=== PATIENT | male | born 1990 | race Two or more races ===

== ENCOUNTER 2016-10-03 20:31 | Emergency (ER) | payer OTHER ==
[2016-10-03 20:37] VITALS: BP 127/72; PULSE 89; TEMP 98.2; BMI 35.5
[2016-10-03] MEDS ORDERED: IBUPROFEN 600 MG TABLET (FP) PO ONE ×2 (21:02→21:11)
[2016-10-03] MEDS ORDERED: OXYCODONE/APAP 5/325MG COMBO TABLET PO ONE (21:02)
[2016-10-03] MEDS ORDERED: SULFAMETHOXAZOLE/TRIMETHOPRIM 800MG/160MG D.S. TABLET PO ONE (21:03)
[2016-10-03] MEDS ORDERED: OXYCODONE/APAP 5/325MG COMBO TABLET ONE (21:11)
[2016-10-03] MEDS ORDERED: SULFAMETHOXAZOLE/TRIMETHOPRIM 800MG/160MG D.S. TABLET ONE (21:11)
--- NOTE | 2016-10-03 21:39 | PDOC ---
History of Present Illness - General Chief Complaint: Abscess Boil Stated Complaint: Abscess Boil Time Seen by Provider: 10/03/16 20:42 History Source: Patient Exam Limitations: No Limitations - History of Present Illness Initial Comments: 10/03/16 21:37 CHIEF COMPLAINT: Abscess HISTORY OF PRESENT ILLNESS: This is an otherwise healthy 26-year-old male who presents for evaluation of 3 days of pain and swelling to the left axilla. He denies any drainage from the site. He has had similar abscesses in the past. He denies fevers/chills or any other systemic symptoms. Vital signs on arrival are unremarkable. REVIEW OF SYSTEMS: GENERAL/CONSTITUTIONAL: No fever or chills. No weakness. No weight change. HEAD, EYES, EARS, NOSE AND THROAT: No change in vision. No ear pain or discharge. No sore throat. CARDIOVASCULAR: No chest pain or palpitations. RESPIRATORY: No cough, wheezing, or shortness of breath. GASTROINTESTINAL: No nausea, vomiting, diarrhea or constipation. GENITOURINARY: No dysuria, frequency, or change in urination. MUSCULOSKELETAL: No joint or muscle swelling or pain. No neck or back pain. SKIN: See HPI. NEUROLOGIC: No headache, vertigo, loss of consciousness, or loss of sensation. PSYCHIATRIC: No depression or anxiety. ENDOCRINE: No increased thirst. No abnormal weight change. HEMATOLOGIC/LYMPHATIC: No anemia, easy bleeding, or history of blood clots. ALLERGIC/IMMUNOLOGIC: No hives or skin allergy. No latex allergy. PHYSICAL EXAM: GENERAL: The patient is awake, alert, and fully oriented, in no acute distress. HEAD: Normal with no signs of trauma. ENT: Pupils equal, round and reactive to light, extraocular movements intact, sclera anicteric, conjunctiva clear. Neck supple. LUNGS: Clear to auscultation bilaterally. Normal excursion. No respiratory distress or use of accessory muscles. CV: RRR, S1/S2, no MRG. Cap refill < 2 sec. ABDOMEN: Soft, non-distended, non-tender. EXTREMITIES: Normal range of motion, no edema. NEUROLOGICAL: Normal speech, normal gait. CN II-XII grossly intact. PSYCH: Normal mood, normal affect. SKIN: 4cm x 3cm area of erythema, tenderness, and fluctuance to left axilla. No surrounding erythema. Past History - Past Medical History Allergies/Adverse Reactions: Allergies Allergy/AdvReac Type Severity Reaction Status Date / Time No Known Allergies Allergy Verified 10/03/16 20:37 Home Medications: Ambulatory Orders No Home Medications 0 dose .ROUTE UTDICT 01/09/13 Naproxen [Naprosyn -] 500 mg PO BID #30 tablet 05/28/14 Ibuprofen [Motrin -] 600 mg PO QID PRN #30 tablet 10/03/16 Sulfamethoxazole/Trimethoprim [Bactrim Ds -] 1 tab PO BID #14 tablet 10/03/16 Anemia: No Asthma: No Cancer: No Cardiac Disorders: No CVA: No COPD: No CHF: No Dementia: No Diabetes: No GI Disorders: No Disorders: No HTN: No Hypercholesterolemia: No Liver Disease: No Seizures: No Thyroid Disease: No - Surgical History Abdominal Surgery: No Appendectomy: No Cardiac Surgery: No Cholecystectomy: No Lung Surgery: No Neurologic Surgery: No Orthopedic Surgery: No - Immunization History Immunization Up to Date: Yes - Psycho/Social/Smoking Cessation Hx Anxiety: No Suicidal Ideation: No Smoking Status: No Smoking History: Never smoked Have you smoked in the past 12 months: No Number of Cigarettes Smoked Daily: 0 Hx Alcohol Use: No Drug/Substance Use Hx: No Substance Use Type: None Hx Substance Use Treatment: No *Physical Exam - Vital Signs Last Vital Signs Temp Pulse Resp BP Pulse Ox 98.2 F 89 18 127/72 99 10/03/16 20:34 10/03/16 20:34 10/03/16 20:34 10/03/16 20:34 10/03/16 20:34 Procedures - Incision and Drainage I&D Site: Left: Axilla Betadine cleansed: Yes Anesthesia: 1% Lidocaine Volume(ml): 4 Blade Size: 11 Attempts: 1 Iodinated Packin/2 in Dressing: Yes ED Treatment Course - Medications Given in the ED: ED Medications Discontinued Medications Generic Name Dose Route Start Last Admin Trade Name Freq PRN Reason Stop Dose Admin Ibuprofen 600 mg 10/03/16 21:02 10/03/16 21:19 Motrin - PO 10/03/16 21:03 600 mg ONCE ONE Administration Oxycodone/Acetaminophen 1 combo 10/03/16 21:02 10/03/16 21:19 Percocet 5/325 - PO 10/03/16 21:03 1 combo ONCE ONE Administration Trimethoprim/Sulfamethoxazole 1 each 10/03/16 21:03 10/03/16 21:19 Bactrim Ds - PO 10/03/16 21:04 1 each ONCE ONE Administration Medical Decision Making - Medical Decision Making 10/03/16 21:43 A/P: 26 year old male with axillary abscess; hx of other abscesses. 1. Analgesia 2. I&D 3. Wound culture 4. Bactrim Followup instructions and return precautions reviewed. *DC/Admit/Observation/Transfer Diagnosis at time of Disposition: Axillary abscess - Discharge Dispostion Disposition: HOME Condition at time of disposition: Stable Admit: No - Prescriptions Prescriptions: Sulfamethoxazole/Trimethoprim [Bactrim Ds -] 1 tab PO BID #14 tablet Ibuprofen [Motrin -] 600 mg PO QID PRN #30 tablet PRN Reason: Pain - Referrals Referrals: Osbaldo Waite MD [Staff Physician] - (Primary care if needed) - Patient Instructions Printed Discharge Instructions: DI for Incision and Drainage of a Skin Abscess Additional Instructions: -Take Bactrim (an antibiotic) and ibuprofen if needed for pain -Change the dressing if soaked -Return here on Monday for a wound check/packing removal or sooner if you have fever, redness around the wound, or any other concerning symptoms
== END 2016-10-03 21:53 | disposition home or self-care (01) ==
LOC: JERFT 20:31
PROC: 0X953ZZ Drainage of Left Axilla, Percutaneous Approach (ICD-10-PCS; principal; 2016-10-03)
DX: L02.412 Cutaneous abscess of left axilla (principal)
CPT/HCPCS: 87070; 87186; 87205; 99281-25

== ENCOUNTER 2016-10-04 14:03 | Emergency (ER) | payer OTHER ==
[2016-10-04 14:08] VITALS: TEMP 100.5; BMI 36.2
[2016-10-04] MEDS ORDERED: ACETAMINOPHEN 325 MG TABLET (FP) PO ONE (14:09)
--- NOTE | 2016-10-04 15:00 | PDOC ---
History of Present Illness - General Chief Complaint: Redness To Affected Area Stated Complaint: revisit WOUND PAIN/fever Time Seen by Provider: 10/04/16 14:52 History Source: Patient - History of Present Illness Initial Comments: 10/04/16 18:29 26M with previous episode of axillary abscess yesterday which was drained and packed and treated with Bactrim , present this afternoon complaining of lingering pain on the site and dizziness, as well as mild fever and tachycardia on triage. Pt did not olive picker his Bactrim prescription. Past History - Past Medical History Allergies/Adverse Reactions: Allergies Allergy/AdvReac Type Severity Reaction Status Date / Time No Known Allergies Allergy Verified 10/04/16 14:04 Home Medications: Ambulatory Orders Sulfamethoxazole/Trimethoprim [Bactrim Ds -] 1 tab PO BID #14 tablet 10/03/16 Anemia: No Asthma: No Cancer: No Cardiac Disorders: No CVA: No COPD: No CHF: No Dementia: No Diabetes: No GI Disorders: No Disorders: No HTN: No Hypercholesterolemia: No Liver Disease: No Seizures: No Thyroid Disease: No Other medical history: none - Surgical History Abdominal Surgery: No Appendectomy: No Cardiac Surgery: No Cholecystectomy: No Lung Surgery: No Neurologic Surgery: No Orthopedic Surgery: No - Immunization History Immunization Up to Date: Yes - Psycho/Social/Smoking Cessation Hx Anxiety: No Suicidal Ideation: No Smoking Status: No Smoking History: Never smoked Have you smoked in the past 12 months: No Number of Cigarettes Smoked Daily: 0 Information on smoking cessation initiated: No Hx Alcohol Use: No Drug/Substance Use Hx: No Substance Use Type: None Hx Substance Use Treatment: No Review of Systems - Review of Systems Constitutional: No: Chills, Diaphoresis, Night Sweats, Weakness HEENTM: No: Symptoms Reported Respiratory: No: Symptoms reported, Shortness of Breath Cardiac (ROS): No: Chest Pain ABD/GI: No: Symptoms Reported : No: Symptoms Reported Musculoskeletal: No: Symptoms Reported Integumentary: Yes: See HPI *Physical Exam - Vital Signs Last Vital Signs Temp Pulse Resp BP Pulse Ox 100.5 F H 127 H 20 136/77 100 10/04/16 14:05 10/04/16 14:05 10/04/16 14:05 10/04/16 14:05 10/04/16 14:05 - Physical Exam General Appearance: Yes: Nourished, Appropriately Dressed. No: Apparent Distress HEENT: positive: EOMI, DANIA, Normal ENT Inspection, Normal Voice Respiratory/Chest: positive: Lungs Clear, Normal Breath Sounds. negative: Respiratory Distress Cardiovascular: positive: Regular Rhythm, Tachycardia Gastrointestinal/Abdominal: positive: Normal Bowel Sounds, Flat, Soft Integumentary: positive: Normal Color, Dry, Warm (No apparent cellulitis, no purulence. Abscess still packed.). negative: Rash, Swelling ED Treatment Course - LABORATORY CBC & Chemistry Diagram: 10/04/16 16:26 10/04/16 16:26 - Medications Given in the ED: ED Medications Discontinued Medications Generic Name Dose Route Start Last Admin Trade Name Freq PRN Reason Stop Dose Admin Acetaminophen 650 mg 10/04/16 14:09 10/04/16 14:09 Tylenol - PO 10/04/16 14:10 650 mg NOW ONE Administration Medical Decision Making - Medical Decision Making 10/04/16 18:40 Healthy 26M with presenting with painful abscess s/p drainage and packing in ED , low-grade fever and tachycardia. The fever and tach being concerning for sepsis/cellulitis, work up and treatment included cbc, cmp, ekg, lactate, iv fluids and Dalbavancin drip. Lactate being normal, patient can be d/c *DC/Admit/Observation/Transfer Diagnosis at time of Disposition: Axillary abscess - Discharge Dispostion Condition at time of disposition: Good
[2016-10-04] MEDS ORDERED: NAPROXEN 375 MG TABLET (FP) PO ONE (15:04)
[2016-10-04] MEDS ORDERED: SODIUM CHLORIDE 1,000 ML IV ONE (16:02)
[2016-10-04] MEDS ORDERED: DALBAVANCIN HCL 1,500 MG in DEXTROSE 5%-WATER - 500 ML IVPB ONE (16:03)
--- NOTE | 2016-10-04 16:09 | PDOC ---
Attending Attestation - Resident Resident Name: Juan Weems - ED Attending Attestation I have performed the following: I have examined & evaluated the patient, The case was reviewed & discussed with the resident, I agree w/resident's findings & plan, Exceptions are as noted - HPI HPI: 10/04/16 16:04 26y/o healthy M s/p I+D of L axillary abscess yesterday p/w f/c/malaise today. - Physicial Exam PE: 10/04/16 16:09 fever, tachycardia well appearing after apap/motrin, HR now 80s L axillary abscess with packing in place, no notable cellulitis. no crepitus. remainder of exam wnl - Medical Decision Making 10/04/16 16:09 26y/o M with fever/tachycardia, + SIRS criteria in setting of L axillary abscess I+D yesterday. concerning for bacteremia. well appearing after given anti-pyretics. sepsis protocol initiated, check wbc/diff and lactate dose of dalvance IV reassess and dispo accordingly 10/04/16 17:09 wbc and diff are wnl. lactate pending, receiving ivf and abx. If lactate normal , remains well appearing and with improved sxs, can be discharged with return precautions. Heart Score/ECG Review #1 ECG reviewed & interpreted by me at: 16:15 General ECG Interpretation: Sinus Rhythm, Normal Rate (90), Normal Intervals ( qtc 430), No acute ischemic changes
[2016-10-04] MEDS ORDERED: DALBAVANCIN HCL 500 MG VIAL (RESTRICTED TO ID ONLY) IVPB ONE (16:12)
[2016-10-04 16:56] LABS: BASOPHIL 0.5 % (0-2.0); EOSINOPHIL 0.8 % (0-4.5); MCHC 32.5 g/dl (32.0-35.9); MEAN CELL VOLUME 80.1 fl (80-96); MEAN PLT VOLUME 9.1 fl (7.5-11.1); PLATELET COUNT 181 K/MM3 (134-434); RDW 14.2 % (11.9-15.9); WHITE BLOOD COUNT 4.4 K/mm3 (4.0-10.0)
[2016-10-04 17:37] LABS: ALBUMIN 3.6 g/dl (3.4-5.0); ANION GAP 11 (8-16); BILIRUBIN,TOTAL 0.5 mg/dL (0.2-1.0); CALCIUM 8.8 mg/dL (8.5-10.1); CO2 23 mmol/L (21-32); CREATININE 0.8 mg/dL (0.7-1.3); GLUCOSE,RANDOM 78 mg/dL (74-106); SGOT/AST 19 U/L (15-37); SGPT/ALT 35 U/L (12-78); TOT PROT 6.6 g/dl (6.4-8.2)
[2016-10-04 17:38] LABS: ALK PHOS 91 U/L (45-117)
[2016-10-04 19:14] VITALS: BP 118/76; PULSE 73
--- NOTE | 2016-10-05 11:51 | EKG ---
Test Reason : Blood Pressure : / mmHG Vent. Rate : 090 BPM Atrial Rate : 090 BPM P-R Int : 168 ms QRS Dur : 104 ms QT Int : 352 ms P-R-T Axes : 040 016 027 degrees QTc Int : 430 ms NORMAL SINUS RHYTHM NORMAL ECG NO PREVIOUS ECGS AVAILABLE Confirmed by AGNIESZKA BARNES MD ([id number]) on 10/05/2016 11:51:08 AM Referred By: Confirmed By:AGNIESZKA BARNES MD
--- NOTE | 2016-10-05 13:01 | PDOC ---
Patient Follow-up (Call Back) - Post ED Follow - Up Condition at time of discharge: Good Disposition at time of original discharge: HOME Reason for Call Back: Abnwl. Microbiology (Patient with positive culture presumptive MRSA was given Dalvance and discharged on Bactrim, appropriate treatment)
== END 2016-10-04 19:13 | disposition home or self-care (01) ==
LOC: JER 14:03
DX: L02.412 Cutaneous abscess of left axilla (principal)
CPT/HCPCS: 36415; 71010-TC; 80053; 83605; 85025; 87040; 93005; 93010; 99282-25; J0875